=== PATIENT | female | born 1940 | race Caucasian/White ===

== ENCOUNTER → 2016-09-29 | Outpatient (CLI) | payer MEDICARE, OTHER ==
[~2016-09-29] MED LIST: VICODIN 5/325 PO
== END ==
LOC: FS 13:05
PROVIDERS: ATTEND Internal Medicine Hematology & Oncology
DX: C82.28 Follicular lymphoma grade III, unspecified, lymph nodes of multiple sites (principal); R00.2 Palpitations; R53.83 Other fatigue; Z92.21 Personal history of antineoplastic chemotherapy
CPT/HCPCS: 99213

== ENCOUNTER → 2018-12-22 | Outpatient (CLI) | payer MEDICARE ==
--- NOTE | 2018-12-22 11:26 | Diagnostic Imaging Report ---
INDICATION: Bilateral wrist pain AP, oblique and lateral views of the wrists are obtained. There is marked joint space narrowing and subchondral sclerosis with articular surface irregularities involving the 1st carpometacarpal joints, bilaterally. Otherwise no fracture or malalignment is identified. There is no evidence of erosive lesion. Atherosclerotic calcification are noted. IMPRESSION: Marked bilateral 1st carpometacarpal degenerative findings without acute abnormality detected. Dictated by: Dictated on workstation # [id number]
== END ==
LOC: RAD FS 11:11
PROVIDERS: ATTEND Nurse Practitioner
DX: M19.031 Primary osteoarthritis, right wrist (principal); M19.032 Primary osteoarthritis, left wrist

== ENCOUNTER 2019-01-03 06:15 | Outpatient (CLI) | payer MEDICARE ==
[~2019-01-03] VITALS: Ht 157 cm; Wt 61.3 kg
[2019-01-03] MEDS ORDERED: MULT-178 PO (12:53)
[2019-01-03] MEDS ORDERED: GABA-486 PO (12:53)
[2019-01-03] MEDS ORDERED: ASPI-586 PO (12:53)
[2019-01-03] MEDS ORDERED: LEVO25TA5 PO (12:53)
[2019-01-04] MEDS ORDERED: HYDR-3812 PO (10:59)
== END 2019-01-03 13:11 | disposition home or self-care (01) ==
LOC: PREOP 06:15
PROVIDERS: ATTEND Orthopaedic Surgery
DX: Z01.818 Encounter for other preprocedural examination (principal)

== ENCOUNTER 2019-01-04 07:12 | Day surgery (SDC) | payer MEDICARE ==
--- NOTE | 2018-12-29 13:30 | HISTORY AND PHYSICAL ---
DATE OF SERVICE: ADMISSION HISTORY AND PHYSICAL This will be for outpatient surgery on 01/04/2019 for right carpal tunnel release. HISTORY: The patient is an 78-year-old right hand dominant female with complaints of right hand pain and paresthesias. She reports numbness in her long finger and index finger as well as thumb. She reports progressive symptoms and due to failure to improve with conservative measures, the patient elected to proceed with surgical intervention. REVIEW OF SYSTEMS: No chest pain, no shortness of breath, no dysuria. PAST MEDICAL HISTORY: Depression, non-Hodgkin's lymphoma, vascular dementia, hypothyroidism. PAST SURGICAL HISTORY: Appendectomy, ankle and tonsillectomy. FAMILY HISTORY: Noncontributory. PRIMARY CARE PROVIDER: MEDICATIONS: Levothyroxine, gabapentin, aspirin and Tylenol. ALLERGIES: PENICILLIN. SOCIAL HISTORY: She denies tobacco use. PHYSICAL EXAMINATION: GENERAL: The patient is well developed, well nourished, in no acute distress. HEENT: Normocephalic, atraumatic. Pupils are equal, round, reactive to light. Oropharynx is clear. NECK: Supple, no lymphadenopathy. LUNGS: Clear to auscultation bilaterally. HEART: Regular rate and rhythm. ABDOMEN: Soft, nontender, nondistended. EXTREMITIES: She has some mild thenar atrophy. Right hand positive Tinel's of carpal tunnel with decreased sensation in median distribution. IMPRESSION: Right carpal tunnel syndrome. PLAN: Right carpal tunnel release. Risks, benefits, options, ramifications and recovery were discussed at length with the patient. She understands and wishes to proceed. Job ID: [id number] DocumentID: [id number] Dictated Date: 12/29/2018 11:06:21 Cardiac Cath Technician Date: 12/29/2018 13:29:50 Dictated By: JHONATHAN TAMEZ MD
[~2019-01-04] VITALS: Ht 157 cm; Wt 61.3 kg
[~2019-01-04 07:12] MED LIST changes: +ASPI-586 PO; +GABA-486 PO; +LEVO25TA5 PO; +MULT-178 PO
--- NOTE | 2019-01-04 07:28 | Progress Note-Pre Operative ---
Pre-Operative Progress Note H&P Reviewed The H&P was reviewed, patient examined and no changes noted. Date Seen by Provider: Jan 04, 2019 Time Seen by Provider: 07:28 Date H&P Reviewed: Jan 04, 2019 Time H&P Reviewed: 07:28 Pre-Operative Diagnosis: right carpal tunnel syndrome JHONATHAN TAMEZ MD Jan 04, 2019 07:28 POS
--- NOTE | 2019-01-04 07:29 | Progress Note-Post Operative ---
Post-Operative Progess Note Surgeon (s)/Ribbon Winder (s) Surgeon JHONATHAN TAMEZ MD Ribbon Winder: Weston Singer Pre-Operative Diagnosis right carpal tunnel syndrome Post-Operative Diagnosis right carpal tunnel syndrome Procedure & Operative Findings Date of Procedure 01/04/19 Procedure Performed/Findings right carpal tunnel release Anesthesia Type MAC plus local Estimated Blood Loss Estimated blood loss (mL): minimal Specimens/Packing Specimens Removed none Packing: none JHONATHAN TAMEZ MD Jan 04, 2019 07:29 POS
[2019-01-04 07:30] VITALS: BP 129/71
[2019-01-04] MEDS ORDERED: HYDROcodone/APAP 7.5 MG/325 MG (LORTAB, LORCET PLUS) TABLET PO PRN (07:30)
[2019-01-04] MEDS ORDERED: LIDOCAINE 1% INJ 20 ML 20 ML VIAL ONE (07:38)
[2019-01-04] MEDS ORDERED: BUPIVACAINE 0.5% 30 ML (SENSORCAINE) VIAL ONE (07:38)
[2019-01-04] MEDS ORDERED: LACTATED RINGERS 1,000 ML IV PRN (08:03)
[2019-01-04] MEDS ORDERED: CLINDAMYCIN 600 MG/50 ML IVPB 50 ML IV ONE (08:15)
[2019-01-04] MEDS ORDERED: PROPOFOL INJECTION 50 ML IV ONE (09:11)
[2019-01-04 09:49] VITALS: BP 105/60
[2019-01-04 10:00] VITALS: BP 117/65
[2019-01-04] MEDS ORDERED: morphine INJ 10 MG/ML 1ML (SYR OR VIAL) IVP ONE (10:00)
[2019-01-04] MEDS ORDERED: ONDANSETRON 4 MG/2 ML (SDV) Z0FRAN IVP PRN (10:00)
[2019-01-04 10:10] VITALS: BP_SYST 112; BP_SYST 116; BP_DIAS 66; BP_DIAS 72
--- NOTE | 2019-01-04 10:23 | Anesthesia-General Post-Op ---
MAC Patient Condition Mental Status/LOC: Same as Preop Cardiovascular: Satisfactory Nausea/Vomiting: Absent Respiratory: Satisfactory Pain: Controlled Complications: Absent Post Op Complications Complications None Follow Up Care/Instructions Patient Instructions None needed. Anesthesiology Discharge Order Discharge Order Patient is doing well, no complaints, stable vital signs, no apparent adverse anesthesia problems. No complications reported per nursing. SAMANTHA GUAJARDO CRNA Jan 04, 2019 10:23 POS
[2019-01-04 10:40] VITALS: BP 111/66
[2019-01-04] MEDS ORDERED: HYDR-3812 PO (10:59)
[2019-01-04 11:15] VITALS: BP 111/66
--- NOTE | 2019-01-04 13:40 | OPERATIVE REPORT ---
DATE OF SERVICE: 01/04/2019 PREOPERATIVE DIAGNOSIS: Right carpal tunnel syndrome. POSTOPERATIVE DIAGNOSIS: Right carpal tunnel syndrome. PROCEDURE: Right open carpal tunnel release. SURGEON: Sergio Hawthorne MD BLOW MACHINE TENDER STARCH SPRAYING: Weston Singer, who assisted throughout the procedure and closed the incision. ANESTHESIA: Monitored anesthesia care plus local by Kunal Rodgers CRNA. TOURNIQUET TIME: 3 minutes at 250 mmHg. ESTIMATED BLOOD LOSS: Minimal. DRAINS: None. COMPLICATIONS: None. POSTOPERATIVE PLAN: Routine protocol. The patient was transferred to the recovery room awake and in stable condition. STATEMENT OF MEDICAL NECESSITY: The patient is an 78-year-old right hand dominant female with complaints of unrelenting right hand pain and paresthesias. She had a markedly positive Tinel's carpal tunnel with a markedly positive Phalen's maneuver. She had failed to respond to conservative measures including activity modifications and bracing and due to functional impairment with progressive symptoms, the patient elected to proceed with surgical intervention. The patient had a positive Tinel's of carpal tunnel with positive Phalen's maneuver. PROCEDURE: After risks and benefits of procedure were discussed and questions were answered, an informed consent was signed and placed on chart. The operative site was confirmed in the preoperative holding area initialed by the surgeon. The patient was then transferred to the operating room and after adequate levels of monitored anesthesia care were obtained, a timeout was called, confirming the operative site. The right upper extremity was prepped and draped in the usual sterile fashion with arm elevated, tourniquet inflated to 250 mmHg. An incision site under sterile conditions had been infiltrated with combination of plain lidocaine and plain Marcaine prior to prepping and draping. With arm elevated, the tourniquet was inflated to 300 mmHg. Standard longitudinal incision was made in line with radial border of the ring finger over the transverse carpal ligament. The underlying soft tissues were sharply dissected. The transverse carpal ligament was identified and sharply incised by pushing through with the scalpel blade. The median nerve was identified and carefully protected throughout the procedure and intact at the conclusion of the procedure. Distally, this was confirmed fully released under direct visualization. Proximally, the transverse carpal ligament was spread above and below with dissection scissors and then opened with slightly open scissor edges while carefully protecting the nerve. This was confirmed fully freed with a freer. The tourniquet was deflated for a total tourniquet time of three minutes. Pressure was used for hemostasis. Wound was copiously irrigated and closed with 4-0 nylon in a running alternating horizontal mattress fashion. A soft dressing and brace were applied. The patient was transferred to the recovery room awake and in stable condition. Job ID: [id number] DocumentID: [id number] Dictated Date: 01/04/2019 09:52:04 Information Services Assistant Date: 01/04/2019 13:39:26 Dictated By: SERGIO HAWTHORNE MD
== END 2019-01-04 11:25 | disposition home or self-care (01) ==
LOC: SDC 07:12
PROVIDERS: ATTEND Orthopaedic Surgery
DX: G56.01 Carpal tunnel syndrome, right upper limb (principal); F32.9 Major depressive disorder, single episode, unspecified; E03.9 Hypothyroidism, unspecified; F01.50 Vascular dementia, unspecified severity, without behavioral disturbance, psychotic disturbance, mood disturbance, and anxiety; Z85.72 Personal history of non-Hodgkin lymphomas; Z90.89 Acquired absence of other organs; Z79.899 Other long term (current) drug therapy; Z79.82 Long term (current) use of aspirin; Z88.0 Allergy status to penicillin
CPT/HCPCS: 87081

== ENCOUNTER → 2019-07-13 | Outpatient (CLI) | payer MEDICARE ==
[~2019-07-13] MED LIST changes: +ACHD5005 PO
--- NOTE | 2019-07-13 11:49 | Diagnostic Imaging Report ---
CLINICAL INDICATION: Patient with right knee pain x3 months. 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 EXAM: X-ray right knee, 3 views. COMPARISON: None. FINDINGS: There is no acute fracture or dislocation. There is no bony erosive or destructive process seen. There is mild to moderately hypertrophic patella spurs at the quadriceps attachment and medial compartment. There is mild to moderate medial compartment narrowing on these nonweightbearing views. There is no knee effusion. IMPRESSION: 1: Degenerative disease of the right knee with no acute fracture or dislocation. 2: There is no bony destructive or erosive process. Dictated by: Dictated on workstation # [id number]
== END ==
LOC: RAD FS 11:17
PROVIDERS: ATTEND Nurse Practitioner
DX: M17.11 Unilateral primary osteoarthritis, right knee (principal)
CPT/HCPCS: 73562

== ENCOUNTER → 2021-04-30 | Outpatient (CLI) | payer MEDICARE ==
--- NOTE | 2021-04-30 12:23 | Diagnostic Imaging Report ---
INDICATION: Right hand pain 3 views right hand show osteoarthritic changes of 1st and 2nd carpometacarpal joints and adjacent intercarpal joint. There is also some osteoarthritic changes with joint space narrowing of the interphalangeal joints of the fingers. IMPRESSION: Osteoarthritis. No acute abnormalities seen. Dictated by: Dictated on workstation # [id number]
== END ==
LOC: RAD FS 11:21
PROVIDERS: ATTEND Nurse Practitioner
DX: M19.041 Primary osteoarthritis, right hand (principal)
CPT/HCPCS: 73130